=== PATIENT | female | born 1975 | race Caucasian/White ===

== ENCOUNTER 2018-08-11 11:53 | Emergency (ER) | payer BC ==
[~2018-08-11] VITALS: Ht 154.9 cm; Wt 120.0 kg
[~2018-08-11 11:53] MED LIST: BENTYL20 MG OR; LORTAB 5 OR; LORTAB 5-325 MG1 TAB PO; NO HOME MEDS; PENICILLN VK500 MG PO
[2018-08-11 12:23] LABS: HEMATOCRIT 40.9 % (37.0-47.0); HEMOGLOBIN 13.2 g/dl (12.0-16.0); IMMATURE GRANULOCYTES 0.9 % (0.0-5.0); MEAN CELL VOLUME 88.5 fL CALC (80.0-100.0); MEAN CORPUSCULAR HGB 28.6 pG CALC (26.0-32.0); MEAN CORPUSCULAR HGB CONC 32.3 g/L CALC (32.0-36.0); NEUT# 4.33 thou/uL (2.00-7.15); RED BLOOD COUNT 4.62 mill/uL (4.20-5.60); RED CELL DISTRI WIDTH 13.5 % (11.5-15.5)
[2018-08-11] MEDS ORDERED: METFORMIN500 MG PO (12:31)
[2018-08-11] MEDS ORDERED: GLIPIZIDE5 MG PO (12:31)
[2018-08-11] MEDS ORDERED: ALLEGRA180 MG PO (12:32)
[2018-08-11] MEDS ORDERED: WELLBUTRIN SR150 MG PO (12:32)
[2018-08-11] MEDS ORDERED: LISINOPRIL10 MG PO (12:32)
[2018-08-11] MEDS ORDERED: BUT/APAP/CAF PO (12:33)
[2018-08-11 12:52] LABS: ALBUMIN 4.2 g/dL (3.2-5.0); ALKALINE PHOSPHATASE 117 u/l (38-126); ANION GAP 16 (6-22 (CALC)); BILIRUBIN, TOTAL 0.6 mg/dL (0.0-1.4); BUN 13 mg/dL (7-17); BUN/CREATININE RATIO 22 (12-20 (CALC)); CARBON DIOXIDE 27 mmol/l (22-30); CHLORIDE 99 mmol/l (95-108); CREATININE 0.6 mg/dL (0.5-1.0); GFR > 60 ML/MIN (>=60 (CALC)); GFR FOR AFR.AMER. > 60 ML/MIN (>=60 (CALC)); LIPASE 84 u/l (23-300); POTASSIUM 4.3 mmol/l (3.5-5.1); SGOT/AST 36 u/l (14-36); SODIUM 137 mmol/l (137-146); TOTAL PROTEIN 7.4 g/dL (6.3-8.2)
[2018-08-11 15:19] VITALS: BP 161/89
== END 2018-08-11 15:20 | disposition home or self-care (01) | DRG 305 ==
LOC: ED 11:53
PROVIDERS: Emergency Medicine
DX: I10 Essential (primary) hypertension (principal); E11.9 Type 2 diabetes mellitus without complications